=== PATIENT | male | born 1945 | race Caucasian/White ===

== ENCOUNTER → 2023-08-02 | Outpatient (CLI) | payer BC, MEDICARE ==
[~2023-08-02] VITALS: Ht 180.3 cm; Wt 99.7 kg
[2023-08-02 12:10] VITALS: BP 134/66; PULSE 71; RESP 16
[2023-08-02 12:22] LABS: BASOPHILS # (AUTO) 0.05 K/uL (0.00-0.20); BASOPHILS % (AUTO) 0.9 % (0.0-5.0); EOSINOPHILS # (AUTO) 0.36 K/uL (0.00-0.70); EOSINOPHILS % (AUTO) 6.5 % (0.0-8.0); HEMATOCRIT 38.2 % (42-54); IMMATURE GRANULOCYTE ABSOLUTE 0.03 K/uL (0-1); LYMPHOCYTES # (AUTO) 0.9 K/uL (1.0-4.8); LYMPHOCYTES % (AUTO) 16.2 % (21.0-51.0); MEAN CORPUSCULAR HEMOGLOBIN 25.8 pg (27.0-33.0); MEAN CORPUSCULAR HGB CONC 30.1 g/dL (32.0-36.0); MEAN CORPUSCULAR VOLUME 85.7 fL (79-99); MONOCYTES # (AUTO) 0.7 K/uL (0.1-1.0); MONOCYTES % (AUTO) 12.6 % (3.0-13.0); NEUTROPHILS # (AUTO) 3.5 K/uL (1.8-7.7); NEUTROPHILS % (AUTO) 63.3 % (40.0-77.0); PLATELET COUNT (AUTO) 152 K/uL (130-400); RED BLOOD CELL COUNT(AUTO) 4.46 MIL/uL (4.50-6.20); RED CELL DISTRIBUTION WIDTH 18.3 % (11.0-15.5); WHITE BLOOD COUNT (AUTO) 5.6 K/uL (4.8-10.8)
[2023-08-02 12:29] LABS: INR <= 0.93 (0.85-1.15); PROTHROMBIN TIME 10.3 SEC (9.6-11.6)
[2023-08-02 12:30] LABS: PARTIAL THROMBOPLASTIN TIME 27.3 SEC (26.3-35.5)
[2023-08-02 12:40] LABS: ALBUMIN 3.4 g/dL (3.5-5.0); BILIRUBIN,TOTAL 0.4 mg/dL (0.2-1.0); CREATININE 3.8 mg/dL (0.5-1.5); POTASSIUM 3.6 mmol/L (3.5-5.1); TOTAL PROTEIN, SERUM 7.8 g/dL (6.0-8.3)
== END | disposition home or self-care (01) ==
LOC: DAH 10:00 → EDSTATUS 13:00
PROVIDERS: ATTEND Student in an Organized Health Care Education/Training Program
DX: N18.6 End stage renal disease (principal)
CPT/HCPCS: 80053; 85025; 85610; 85730; 36415; 93005; A6260

== ENCOUNTER → 2024-05-19 | Outpatient (CLI) | payer MEDICARE ==
[2024-05-19 16:14] LABS: ALBUMIN 3.6 g/dL (3.5-5.0); BILIRUBIN,TOTAL 0.5 mg/dL (0.2-1.0); CREATININE 6.9 mg/dL (0.5-1.3); POTASSIUM 3.9 mmol/L (3.5-5.1); TOTAL PROTEIN, SERUM 7.7 g/dL (6.0-8.3)
[2024-05-19 16:16] LABS: HEMOGLOBIN A1C 5.7 % (4.0-6.0)
== END | disposition home or self-care (01) ==
LOC: LAB 14:43
PROVIDERS: ATTEND Student in an Organized Health Care Education/Training Program
DX: I82.411 Acute embolism and thrombosis of right femoral vein (principal); N18.6 End stage renal disease; Z79.899 Other long term (current) drug therapy
CPT/HCPCS: 36415; 80053; 80061; 83036

== ENCOUNTER → 2024-05-22 | Outpatient (CLI) | payer MEDICARE | END | disposition home or self-care (01) | LOC: SHCH 09:13 | PROVIDERS: ATTEND Student in an Organized Health Care Education/Training Program | DX: R00.1 Bradycardia, unspecified (principal) | CPT/HCPCS: 93306 ==

== ENCOUNTER 2024-07-07 06:31 | Day surgery (SDC) | payer MEDICARE ==
[2024-07-01 10:28] VITALS: BP 148/64; PULSE 58; RESP 18; TEMP 97.3
[2024-07-01 10:28] LABS: BASOPHILS # (AUTO) 0.05 K/uL (0.00-0.20); BASOPHILS % (AUTO) 0.8 % (0.0-5.0); EOSINOPHILS # (AUTO) 0.31 K/uL (0.00-0.70); EOSINOPHILS % (AUTO) 4.7 % (0.0-8.0); IMMATURE GRANULOCYTE ABSOLUTE 0.04 K/uL (0-1); LYMPHOCYTES # (AUTO) 1.1 K/uL (1.0-4.8); MEAN CORPUSCULAR HEMOGLOBIN 29.7 pg (27.0-33.0); MEAN CORPUSCULAR HGB CONC 31.6 g/dL (32.0-36.0); MEAN CORPUSCULAR VOLUME 93.9 fL (79-99); MONOCYTES # (AUTO) 0.7 K/uL (0.1-1.0); MONOCYTES % (AUTO) 11.1 % (3.0-13.0); NEUTROPHILS # (AUTO) 4.3 K/uL (1.8-7.7); NEUTROPHILS % (AUTO) 65.8 % (40.0-77.0); PLATELET COUNT (AUTO) 151 K/uL (130-400); RED BLOOD CELL COUNT(AUTO) 3.94 MIL/uL (4.50-6.20); RED CELL DISTRIBUTION WIDTH 15.9 % (11.0-15.5); WHITE BLOOD COUNT (AUTO) 6.6 K/uL (4.8-10.8)
[2024-07-01 10:39] LABS: CREATININE 6.9 mg/dL (0.5-1.3); POTASSIUM 3.8 mmol/L (3.5-5.1)
[2024-07-01 10:40] LABS: INR <= 0.93 (0.85-1.15); PROTHROMBIN TIME 10.5 SEC (9.6-11.6)
[2024-07-01 10:41] LABS: PARTIAL THROMBOPLASTIN TIME 25.6 SEC (26.3-35.5)
[~2024-07-07] VITALS: Ht 182.9 cm; Wt 109.1 kg
[2024-07-07] VITALS (14 sets, daily range): BP systolic 122–161; BP diastolic 61–72; PULSE 66–83; RESP 14–18; TEMP 97.3–97.9
[2024-07-07] MEDS: ceFAZolin SODIUM 2 GM VIAL IVPB ONE
[~2024-07-07 06:31] MED LIST: FAMO20TA8 PO; FOLI0.8T53 PO; MIDO10TA3 PO; SEVELAMER PO; SIMV-43 PO
--- NOTE | 2024-07-07 07:02 | EKG ---
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
[2024-07-07 07:34] LABS: CREATININE 7.6 mg/dL (0.5-1.3); POTASSIUM 4.8 mmol/L (3.5-5.1)
[2024-07-07] MEDS: ceFAZolin SODIUM 2 GM VIAL ONE (08:01)
[2024-07-07] MEDS: 0.9% NACL 500ML IV.SOLN 500 ML IV ONE (08:01)
[2024-07-07] MEDS: ceFAZolin SODIUM 1 GM VIAL ONE (08:01)
[2024-07-07] MEDS ORDERED: LIDOCAINE HCL MPF 1% 5ML VIAL ONE (08:52)
[2024-07-07] MEDS ORDERED: rocuRONium bROMide 10MG/1ML 5ML VL ONE (08:53)
[2024-07-07] MEDS ORDERED: proPOFol 10 MG/ML 20ML VIAL IV ONE (08:53)
[2024-07-07] MEDS ORDERED: GLYCOPYRROLATE 0.2 MG/ML 5 ML VIAL ONE (08:53)
[2024-07-07] MEDS ORDERED: MIDAZOLAM HCL 1 MG/ML 2ML VIAL ONE (08:53)
[2024-07-07] MEDS ORDERED: phenylEPHRINE HCL 10 MG/ML 1ML VIAL IV ONE (08:53)
[2024-07-07] MEDS ORDERED: NEOSTIGMINE METHYLSULFATE 1MG/ML IV ONE (08:53)
[2024-07-07] MEDS ORDERED: FENTanyl CITRate PF 50 MCG/1 ML 2ML VIAL ONE ×2 (08:54→10:58)
[2024-07-07] MEDS ORDERED: ondanSETRON 4MG INJ ONE (09:15)
[2024-07-07] MEDS ORDERED: HEParin 10,000 UNIT/10ML (1,000 UNIT/ML) VIAL ONE (10:04)
--- NOTE | 2024-07-07 11:03 | OP ---
Operative Note: DATE OF PROCEDURE: 07/07/24 SURGEON: COURTNEY LOWE MD OIL CHANGER: [] PREOPERATIVE DIAGNOSIS: End-stage renal disease POSTOPERATIVE DIAGNOSIS: End-stage renal disease PROCEDURE: Right upper extremity brachiobasilic graft creation INDICATIONS: Patient needs access for dialysis ESTIMATED BLOOD LOSS: 10cc Devices left in place: 4to 7 mm graft Anesthesia: General endotracheal DESCRIPTION OF PROCEDURE: Patient is brought to the operating room placed on the operating table in a supine position. Once general endotracheal anesthesia is achieved patient's right upper extremity up to the axilla is prepped and draped in sterile fashion. Using ultrasound we identified the basilic vein in the upper inner arm and marked, it looked adequate for use for brachiobasilic graft. We identified the brachial artery at the antecubital fossa and marked it as well. We then proceeded to create a longitudinal incision medially in the arm and dissected down through the subcutaneous tissue to expose the basilic vein into the axilla.. We exposed that for a length of about 4 cm. We then proceeded to create a transverse incision at the antecubital fossa. Expose the brachial artery for a length of about 4 cm. We then proceeded to tunnel with a [place] tunneler to connect both incisions and tunneled the 4 to 7 mm graft with a 4 mm portion to the antecubital fossa on the 7 mm portion to the axillary incision. We then proceeded to create our arterial anastomosis first. We then asked colleen lopez to give 5000 units of heparin. I then proceeded to clamp the brachial artery proximally and distally . I then proceeded to create a end-to-side anastomosis between the brachial artery and the 4 mm portion of the graft at the antecubital fossa with 6-0 Prolene. I then opened up the clamp to the graft first and that there to flush. And then proceeded to open the proximal clamp on the artery emanated flush out the anastomosis and then open the distal clamp. I then proceeded to suture the anastomosis. We then cut our graft distally to tailored to that there was no redundancy. And proceeded to create our venous anastomosis with a 7 mm portion of the graft. We clamped the basilic vein proximally and distally. And created an end-to-side anastomosis with the basilic vein Using 6-0 Prolene. I then opened up the clamp to the graft first and that there to flush. And then proceeded to open the proximal clamp on the vein emanated flush out the anastomosis and then open the distal clamp. I then proceeded to suture the anastomosis. We ensured with a Doppler that we had a strong palmar arch pulse at the right hand and ulnar and radial pulses as well. We had a good thrill throughout the graft. We then closed both incisions with 2 layers with subcutaneous tissue being closed with 2-0 Vicryl in running fashion and the skin was closed with 4-0 Monocryl in running fashion, Dermabond was applied over top. Skin dressings were applied over top patient tolerated the procedure well all counts were correct x2 at the end of the procedure. COURTNEY LOWE MD Jul 07, 2024 11:03
== END 2024-07-07 12:40 | disposition home or self-care (01) ==
LOC: DAH 06:31
PROVIDERS: ATTEND Student in an Organized Health Care Education/Training Program
DX: E11.22 Type 2 diabetes mellitus with diabetic chronic kidney disease (principal); N18.6 End stage renal disease; E78.5 Hyperlipidemia, unspecified; E66.9 Obesity, unspecified; R06.81 Apnea, not elsewhere classified; Z68.31 Body mass index [BMI] 31.0-31.9, adult; Z79.899 Other long term (current) drug therapy; Z98.890 Other specified postprocedural states; Z86.2 Personal history of diseases of the blood and blood-forming organs and certain disorders involving the immune mechanism
CPT/HCPCS: 80048 ×2; 85025; 85610; 85730; 86850 ×2; 86900 ×2; 86901 ×2; 36415 ×2; 36830; 93005; 82948 ×2; A6260; A4663; C1768; J7040; J3010 ×2; J0690 ×3; J0665; J3490 ×3; J1644; J2250; J2704; J2405; J2710; J2371; A4649 ×2; C1713 ×2; A4930; A4215; A4222; A4221; A4216; A4450; A4223 ×2; A4600

== ENCOUNTER → 2024-07-17 | Outpatient (CLI) | payer MEDICARE ==
--- NOTE | 2024-07-17 10:35 | HMCIMG ---
HIP UNILAT 2-3VW RIGHT REASON: PAIN IN RIGHT HIP COMPARISON: None TECHNIQUE: 3 views were obtained of the pelvis and right hip. FINDINGS: There are normal-appearing bones of the pelvis. There are no visible fractures. Joint spaces are preserved. Proximal right femur appears unremarkable. IMPRESSION: 1. Unremarkable exam, no evidence of fracture, hip joint space appears preserved.
--- NOTE | 2024-07-17 10:35 | HMCIMG ---
EXAM: LUMBAR SPINE 2-3VWS REASON: LOW BACK PAIN. COMPARISON: None. TECHNIQUE: 3 views of the lumbar spine were obtained. FINDINGS: Interspace heights appear preserved. There are severe degenerative changes in the facets at L3, L4 and L5. There are no compression fractures. There are bilateral nephrostomy catheters in place. There is a vena cava filter. Soft tissues appear unremarkable. IMPRESSION: 1. Marked degenerative changes in the facets at L 3,L4 and L5.
== END | disposition home or self-care (01) ==
LOC: RAH 07:28
DX: M47.816 Spondylosis without myelopathy or radiculopathy, lumbar region (principal); M54.50 Low back pain, unspecified; M25.551 Pain in right hip
CPT/HCPCS: 72100; 73502